=== PATIENT | female | born 1970 | race Caucasian/White ===

== ENCOUNTER 2019-08-03 18:19 | Inpatient (IN) | payer OTHER ==
[~2019-08-03] VITALS: Ht 162.6 cm; Wt 62.6 kg
[2019-08-03 18:54] VITALS: BP 121/56
--- NOTE | 2019-08-03 19:41 | NUR ---
48 Y/O FEMALE BIB SELF FOR BILATERAL LEG EDEMA AND PAIN FOR 2 DAYS. NO PMH REPORTED. <3 CAPILLARY REFILL. BILATERAL NONPITTING EDEMA NOTED ON ANKLES/LEGS. PAIN IS A 7/10. PER PATIENT, "I'VE NOTICED IT JUST FEELS TIGHT AROUND MY ANKLES, AND IT'S WORKING ITS WAY UP TO MY LEGS." PATIENT ALSO STATES THAT SHE HAS BEEN "PEEING A LOT LATELY". DENIES N/V/D. LUNG SOUNDS CLEAR BILATERALLY (ANTERIOR/POSTERIOR). ERMD MADE AWARE OF STATUS. SIDE RAILS X1. WILL CONTINUE TO MONITOR. PMH:DENIES RX:DENIES NKDA
--- NOTE | 2019-08-03 19:41 | NUR ---
PT AMBULATED TO BED 09
--- NOTE | 2019-08-03 20:00 | NUR ---
PATIENT SITTING IN BED; ON HER PHONE. NO PAIN AT THIS TIME. VSS.
[2019-08-03] MEDS ORDERED: ASPIRIN 81 MG TAB.CHEW PO ONE (20:35)
--- NOTE | 2019-08-03 21:00 | NUR ---
PATIENT IS SITTING QUIETLY IN BED. WILL CONTINUE TO MONITOR.
[2019-08-03 21:26] LABS: ANION GAP 11.9 (8-16); CARBON DIOXIDE 26.9 mmol/L (21-32); CREATININE 0.6 mg/dL (0.6-1.3); POTASSIUM 3.8 mmol/L (3.5-5.1)
[2019-08-03 21:31] LABS: ALBUMIN 2.7 g/dL (3.4-5.0); TOTAL BILIRUBIN 0.7 mg/dL (0.0-1.0)
[2019-08-03 22:03] LABS: BASOPHILS % (AUTO) 1.2 % (0.0-2.0); EOSINOPHILS # (AUTO) 0.1 K/uL (0-0.4); HEMATOCRIT 22.3 % (36-48); LYMPHOCYTES # (AUTO) 1.5 K/uL (2.5-16.5); LYMPHOCYTES % (AUTO) 44.5 % (20.5-51.1); MEAN CORPUSCULAR HEMOGLOBIN 18 pg (27-31); MEAN CORPUSCULAR HGB CONC 30 g/dL (33-37); MEAN CORPUSCULAR VOLUME 61.1 fL (80-94); MONOCYTES # (AUTO) 0.3 K/uL (0.8-1.0); MONOCYTES % (AUTO) 7.5 % (1.7-9.3); NEUTROPHILS # (AUTO) 1.5 K/uL (1.8-7.7); NEUTROPHILS % (AUTO) 43.8 % (42.2-75.2); PLATELET COUNT (AUTO) 115 K/uL (140-450); RED BLOOD CELL COUNT(AUTO) 3.66 MIL/uL (4.20-5.40); RED CELL DISTRIBUTION WIDTH 21.4 % (11.6-13.7); WHITE BLOOD COUNT (AUTO) 3.4 K/uL (4.8-10.8)
[2019-08-03 22:11] LABS: HEMOGLOBIN 6.7 g/dL (12.0-16.0)
--- NOTE | 2019-08-03 23:00 | NUR ---
VSS. PATIENT SITTING IN BED. ALL NEEDS MET. WILL CONTINUE TO MONITOR.
[2019-08-03 23:44] LABS: PROTHROMBIN TIME 11.7 secs (10.8-13.4)
--- NOTE | 2019-08-04 01:20 | NUR ---
Patient will be admitted to care of [facility]. Admited to TELEMETRY ROOM 11A. . Belongings list completed. Report to ROSEMARY GALINDO
--- NOTE | 2019-08-04 01:26 | NUR ---
RECEIVED BEDSIDE REPORT FROM SURVEY COMPILER ANNA. AAOX4. RESPIRATIONS ARE EQUAL AND UNLABORED ON ROOM AIR. LUNG SOUNDS ARE CLEAR. SKIN IS INTACT. SANGEETHA NON-PITTING EDEMA. LEGS WARM TO THE TOUCH PULSES INTACT. US VENOUS NEG DVT. DX ANEMIA 6.7HGB. CONSENT FOR BLOOD OBTAINED IN ER. NKA. PT AMBULATORY. DAUGHTER AND SON ARE AT BEDSIDE. PT DENIES HX. EDUCATED PT ON BLOOD TRANSFUSION. IV ON R WRIST 20G SL. ORIENTED PT TO ROOM, CALL LIGHT, VISITING HOURS AND STAFF. MRSA SWAB OBTAINED. POC DISCUSSED WITH PT. VSS. CALL LIGHT IS WITHIN REACH.
[2019-08-04] MEDS ORDERED: ONDANSETRON 4 MG/2 ML VIAL IVP PRN (01:30)
[2019-08-04 01:43] VITALS: BP 118/78
--- NOTE | 2019-08-04 02:15 | NUR ---
BLOOD TRANSFUSION STARTED. PRE VS: 118/78 HR 103 95RA 18 97.8 DENIES PAIN. WILL MONITOR CLOSELY.
--- NOTE | 2019-08-04 02:30 | NUR ---
NO S/E NOTED. VS: 97.8 96HR 16 107/56. RATE INCREASED TO 100M/H.
[2019-08-04] MEDS ORDERED: KETOROLAC 30 MG/ML VIAL IVP PRN (02:35)
[2019-08-04] MEDS ORDERED: MAGNESIUM CITRATE 300 ML BTL PO ONE (03:00)
[2019-08-04] MEDS ORDERED: MAGNESIUM CITRATE 300 ML BTL PO SCH ×2 (03:00→08:00)
[2019-08-04] MEDS ORDERED: BISACODYL 5 MG TABEC PO SCH ×2 (03:00→08:00)
[2019-08-04] MEDS: DEXT 5% / NACL 0.45% 1,000 ML IV SCH ×2 (03:06→19:15)
--- NOTE | 2019-08-04 03:06 | NUR ---
OBTAIN CONSENT FOR COLOSCOPY AND EGD. PROCEDURE EXPLAIN TO PT. ADMINISTERED BOWEL PREP. WILL CONTINUE TO MONITOR.
[2019-08-04 04:00] VITALS: BP 100/44
--- NOTE | 2019-08-04 05:35 | NUR ---
BLOOD TRANSFUSION COMPLETED AT 0520. NO REACTION. POST VS: 100/64 HR 96 16 98.7 DENIES PAIN. ALL NEED MET. SAFETY MEASURES ARE IN PLACE
--- NOTE | 2019-08-04 06:27 | NUR ---
PT IS SLEEPING COMFORTABLY IN BED. CHEST RISE AND FALL. NO S/S OF DISTRESS. CALL LIGHT IS WITHIN REACH. PT IS STABLE WILL ENDORSE TO DAY RN.
--- NOTE | 2019-08-04 07:30 | NUR ---
BEDSIDE REPORT RECEIVED FROM FORECAST ANALYST NURSE, PT RESTING QUIETLY, AOX3, RESP EVEN UNLABORED ON RA, FOLLOWS COMMANDS, DENIES PAIN, SITE WNL, ON CONTINUOUS TELE MONITOR, SKIN WARM DRY COLOR WNL, ALL SAFETY MEASURE SIN PLACE, POC REVIEWED, NPO AFTER 10AM, FOR EGD, WILL CONTINUE TO MONITOR.
[2019-08-04 08:00] VITALS: BP 96/51
--- NOTE | 2019-08-04 08:31 | NUR ---
PATIENT HAS BEEN SCREENED AND CATEGORIZED MODERATE NUTRITION RISK. PATIENT WILL BE SEEN WITHIN 3-5 DAYS OF ADMISSION. 08/06/19 08/08/[address]
[2019-08-04] MEDS: PANTOPRAZOLE 40 MG INJ VIAL IVP SCH (08:41)
--- NOTE | 2019-08-04 08:48 | NUR ---
AM MEDS GIVEN, PT STATES SHE DOES NOT WANT TO DRINK MORE MAG CITRATE AND 1L WATER, EGD/COLONOSCOPY PROCEDURE EDUCATION GIVEN PT VERBALIZED UNDERSTANDING, PT STATES SHE WILL TRY TO DRINK SLOWLY.
[2019-08-04 09:41] LABS: CARBON DIOXIDE 24.6 mmol/L (21-32); CREATININE 0.6 mg/dL (0.6-1.3); POTASSIUM 3.6 mmol/L (3.5-5.1)
[2019-08-04] MEDS: SUPREP BOWEL PREP KIT 354 ML SOLN.RECON PO SCH ×2 (10:16→13:36)
[2019-08-04 10:18] LABS: HEMATOCRIT 27.9 % (36-48); HEMOGLOBIN 8.4 g/dL (12.0-16.0); MEAN CORPUSCULAR HEMOGLOBIN 20 pg (27-31); MEAN CORPUSCULAR HGB CONC 30 g/dL (33-37); MEAN CORPUSCULAR VOLUME 65.8 fL (80-94); PLATELET COUNT (AUTO) 97 K/uL (140-450); RED BLOOD CELL COUNT(AUTO) 4.24 MIL/uL (4.20-5.40); RED CELL DISTRIBUTION WIDTH 26.3 % (11.6-13.7); WHITE BLOOD COUNT (AUTO) 2.9 K/uL (4.8-10.8)
--- NOTE | 2019-08-04 10:30 | NUR ---
PT REPORTS BM X3 THIS AM, STILL SOFT.
--- NOTE | 2019-08-04 11:15 | NUR ---
PT FINISHED SUREPREP, NOW DRINKING ORAL CONTRAST FOR CT, FLEETS ENEMA GIVEN, PT REFUSES SECOND ENEMA.
[2019-08-04 11:27] LABS: EOSINOPHILS % (MANUAL) 4 % (0-4); LYMPHOCYTES % (MANUAL) 25 % (20-46); MONOCYTES % (MANUAL) 6 % (5-12)
[2019-08-04 12:00] VITALS: BP 118/57
--- NOTE | 2019-08-04 13:20 | NUR ---
PT TO CT IN WHEELCHAIR
--- NOTE | 2019-08-04 13:30 | NUR ---
GI NURSE CESAR AWARE THAT PT STILL HAVING BROWN LOOSE STOOL, NOT CLEAR STOOL.
[2019-08-04] MEDS ORDERED: diphenhydrAMINE 50 MG/ML VIAL ONE (13:41)
[2019-08-04] MEDS ORDERED: MIDAZOLAM 2 MG/2 ML VIAL ONE (13:42)
[2019-08-04] MEDS ORDERED: fentaNYL 0.05 MG/ML VIAL ONE ×2 (13:42)
--- NOTE | 2019-08-04 13:50 | NUR ---
PT TO PREOP FOR EGD/COLONOSCOPY WITH CESAR RILEY.
[2019-08-04] MEDS ORDERED: fentaNYL 0.05 MG/ML VIAL IVP ONE (14:18)
[2019-08-04] MEDS ORDERED: MIDAZOLAM 2 MG/2 ML VIAL IVP ONE (14:20)
--- NOTE | 2019-08-04 15:35 | NUR ---
PT RETURNED BACK FROM GI LAB, PT SLEEPY, AROUSABLE, VITALS STABLE, HR 81, BP 121/72, RR 16, O2SAT 100% 2L NC O2, NO C/O PAIN, DAUGHTER AT BEDSIDE, WILL COTINUE TO MONITOR.
[2019-08-04 16:00] VITALS: BP 125/74
--- NOTE | 2019-08-04 16:02 | NUR ---
Cable Dispatcher Note: Patient is a 48-year-old female admitted for anemia. Patient has no significant PMHX. Patient was admitted from home. SW attempted to meet with patient to verify demographics and complete screening but patient was at GI Lab. SW will follow up.
--- NOTE | 2019-08-04 17:05 | NUR ---
PT RESTING QUIETLY IN NO ACUTE DISTRESS, PT DENIES ANY PAIN OR DISCOMFORT, DAUGHTERS AT BESIDE, POC DISCUSSED, PT DENIES ANY IMMEDIATE NEEDS.
--- NOTE | 2019-08-04 19:13 | NUR ---
REPORT GIVEN TO PALLET STONE INSERTER NURSE, PT IN STABLE CONDITION
--- NOTE | 2019-08-04 19:14 | NUR ---
RECEIVED BEDSIDE REPORT RECEIVED FROM DAY RN, PT RESTING QUIETLY, AOX4, RESP EVEN UNLABORED ON RA, FOLLOWS COMMANDS, DENIES PAIN, IV ON R HAND 20G SITE WNL, ON CONTINUOUS TELE MONITOR, SKIN WARM DRY COLOR WNL, ALL SAFETY MEASURE ARE IN PLACE. WILL CONTINUE TO MONITOR.
[2019-08-04 20:00] VITALS: BP 114/66
--- NOTE | 2019-08-04 20:30 | NUR ---
VITAL SIGNS ARE WITHIN NORMAL LIMITS. DENIES PAIN. GAVE CHICKEN BROTH PER REQUEST. FAMILY AT BEDSIDE. CALL LIGHT IS WITHIN REACH. WILL CONTINUE TO MONITOR.
--- NOTE | 2019-08-04 22:20 | NUR ---
PT IS SLEEPING COMFORTABLY IN BED. CHEST RISE AND FALL. CALL LIGHT IS WITHIN REACH.
[2019-08-05] VITALS: BP 115/73
--- NOTE | 2019-08-05 | NUR ---
VITAL SIGNS ARE WITHIN NORMAL LIMITS. NO S/S OF DISTRESS. CALL LIGHT IS WITHIN REACH. WILL CONTINUE TO MONITOR.
--- NOTE | 2019-08-05 02:41 | NUR ---
PATIENT IS SLEEPING COMFORTABLY IN BED. NO S/S OF DISTRESS. WILL CONTINUE TO MONITOR.
[2019-08-05 04:00] VITALS: BP 113/68
--- NOTE | 2019-08-05 04:00 | NUR ---
VITAL SIGNS ARE WITHIN NORMAL LIMITS. DENIES PAIN. SAFETY MEASURES ARE IN PLACE. WILL CONTINUE TO MONITOR.
--- NOTE | 2019-08-05 06:00 | NUR ---
REEDUCATED PT ON NEED FOR URINE SPECIMEN. PT VERBALIZED HAS NO NEED TO URINATE AT THIS TIME. SPECIMEN CUP REMAINS AT BEDSIDE. WILL CONTINUE TO MONITOR.
[2019-08-05 06:08] LABS: HEPATITIS A ANTIBODY IGM Negative (Negative); HEPATITIS B CORE AB TOTAL Negative (Negative); HEPATITIS B SURFACE ANTIBODY Non Reactive (.); HEPATITIS B SURFACE ANTIGEN Negative (Negative)
--- NOTE | 2019-08-05 07:25 | NUR ---
GAVE BEDSIDE REPORT TO DAY RN. PT ENDORSED IN STABLE CONDITION.
--- NOTE | 2019-08-05 07:26 | NUR ---
BEDSIDE REPORT RECEIVED FROM ACID WASH OPERATOR NURSE, PT ON SENIOR INFORMATION DEVELOPER, PT SLEEP AROUSES TO VOICE, ORIENTED X4, SPEAKS CLEARLY, RESP EVEN UNLABORED, ON RA, SKIN WARM DRY COLOR WNL, RW20G D5 1/2NS AT 60 INFUSING WELL, SITE WNL, PT DENIES ANY PAIN OR DISCOMFORT, PLAN OF CARE REVIEWED, STILL NEED URINE SAMPLE, PT AWARE, SPECIMEN CUP AT BEDSIDE, ALL SAFETY MEASURES IN PLACE, WILL CONTINUE TO MONITOR.
[2019-08-05 07:33] LABS: BASOPHILS % (AUTO) 0.8 % (0.0-2.0); EOSINOPHILS # (AUTO) 0.2 K/uL (0-0.4); EOSINOPHILS % (AUTO) 3.4 % (0.0-4.0); HEMATOCRIT 27.3 % (36-48); HEMOGLOBIN 8.4 g/dL (12.0-16.0); LYMPHOCYTES # (AUTO) 1.2 K/uL (2.5-16.5); LYMPHOCYTES % (AUTO) 24.7 % (20.5-51.1); MEAN CORPUSCULAR HEMOGLOBIN 20 pg (27-31); MEAN CORPUSCULAR HGB CONC 31 g/dL (33-37); MONOCYTES # (AUTO) 0.5 K/uL (0.8-1.0); MONOCYTES % (AUTO) 9.9 % (1.7-9.3); NEUTROPHILS # (AUTO) 3.1 K/uL (1.8-7.7); NEUTROPHILS % (AUTO) 61.2 % (42.2-75.2); PLATELET COUNT (AUTO) 111 K/uL (140-450); RED CELL DISTRIBUTION WIDTH 26.3 % (11.6-13.7)
[2019-08-05 08:00] VITALS: BP 93/66
[2019-08-05] MEDS: PANTOPRAZOLE 40 MG INJ VIAL IVP SCH (08:12)
--- NOTE | 2019-08-05 08:17 | NUR ---
DR HEADLEY AT BEDSIDE, PT TO DC HOME TODAY WITH RX PROTONIX.
[2019-08-05] MEDS ORDERED: PANT40EC PO (10:52)
[2019-08-05 10:59] LABS: POTASSIUM 3.7 mmol/L (3.5-5.1)
[2019-08-05 11:00] LABS: ALBUMIN 2.3 g/dL (3.4-5.0); ANION GAP 11.1 (8-16); CARBON DIOXIDE 26.6 mmol/L (21-32); CREATININE 0.6 mg/dL (0.6-1.3); TOTAL BILIRUBIN 1.5 mg/dL (0.0-1.0)
--- NOTE | 2019-08-05 11:18 | NUR ---
DC INSTRUCTION AND RX FOR PROTONIC GIVEN AND EXPLAINED TO PT, PT VERBALIZED FULL UNDERSTANDING.
--- NOTE | 2019-08-05 11:30 | NUR ---
IV DC'D, CATH TIP INTACT, BLEEDING CONTROLLED, PT LAUREEN WELL, PT UP AMBULATING WELL WITH STEADY GAIT, PT DC HOME WITH SON, PICKED UP BY DAUGHTER.
== END 2019-08-05 11:30 | disposition home or self-care (01) | DRG 242 ==
LOC: MED 18:19 → MTU 08-04 00:47
PROVIDERS: ADMIT Internal Medicine Pulmonary Disease; ATTEND Internal Medicine Pulmonary Disease
PROC: 0DJD8ZZ Inspection of Lower Intestinal Tract, Via Natural or Artificial Opening Endoscopic (ICD-10-PCS; 2019-08-04)
PROC: 30233N1 Transfusion of Nonautologous Red Blood Cells into Peripheral Vein, Percutaneous Approach (ICD-10-PCS; principal; 2019-08-04 14:30)
PROC: 06L38CZ Occlusion of Esophageal Vein with Extraluminal Device, Via Natural or Artificial Opening Endoscopic (ICD-10-PCS; 2019-08-04 14:30)
PROC: 0DB68ZX Excision of Stomach, Via Natural or Artificial Opening Endoscopic, Diagnostic (ICD-10-PCS; 2019-08-04 14:30)
DX: I85.00 Esophageal varices without bleeding (principal); D69.6 Thrombocytopenia, unspecified; D50.9 Iron deficiency anemia, unspecified; K20.9 Esophagitis, unspecified; K31.89 Other diseases of stomach and duodenum; E44.1 Mild protein-calorie malnutrition
CPT/HCPCS: 36415; 71045; 80048; 80053; 81025; 83880; 84484; 85025; 85610; 85730; 86677; 86704; 86706; 86708; 86709; 86803; 86886; 86900; 86901; 86920; 87081; 87340; 93005; 93970; 99285; C9113; J1200; J2250; J3010; J7030; P9016; Q0092; Q9967